=== PATIENT | female | born 1950 | race Caucasian/White ===

== ENCOUNTER → 2021-03-21 | Outpatient (CLI) | payer MEDICARE, OTHER ==
[~2021-03-21] MED LIST: APAP W/CODEINE1 TA2 PO; ASA81BEC PO; CALCIUM500 MG PO; DESYREL150 MG PO; EVISTA60 MG PO; FISH OIL 1,0001 EAC9 PO; LEVO-T50 MCG PO; MULTIVITAMIN PO; PROZAC PO; RIZATRIPTAN10 MG PO; SIMVASTATIN PO; VITAMIN D3 PO; ZYRTEC10 M5 PO
== END ==
LOC: M.PC 08:47
PROVIDERS: ATTEND Physical Medicine & Rehabilitation
DX: M47.816 Spondylosis without myelopathy or radiculopathy, lumbar region (principal); M16.0 Bilateral primary osteoarthritis of hip; M47.898 Other spondylosis, sacral and sacrococcygeal region; K21.9 Gastro-esophageal reflux disease without esophagitis; E03.9 Hypothyroidism, unspecified; Z90.710 Acquired absence of both cervix and uterus

== ENCOUNTER → 2021-03-22 | Outpatient (CLI) | payer MEDICARE, OTHER | LOC: M.MRI 13:50 | PROVIDERS: ATTEND Physical Medicine & Rehabilitation | DX: S32.028A Other fracture of second lumbar vertebra, initial encounter for closed fracture (principal); M47.816 Spondylosis without myelopathy or radiculopathy, lumbar region; M48.061 Spinal stenosis, lumbar region without neurogenic claudication; M51.27 Other intervertebral disc displacement, lumbosacral region; M48.07 Spinal stenosis, lumbosacral region; X58.XXXA Exposure to other specified factors, initial encounter; Y93.89 Activity, other specified; Y92.89 Other specified places as the place of occurrence of the external cause; Y99.8 Other external cause status ==

== ENCOUNTER → 2021-03-28 | Outpatient (CLI) | payer MEDICARE, OTHER | LOC: M.INT 10:29 | PROVIDERS: ATTEND Physical Medicine & Rehabilitation | DX: S32.028A Other fracture of second lumbar vertebra, initial encounter for closed fracture (principal); X58.XXXA Exposure to other specified factors, initial encounter; Y93.89 Activity, other specified; Y92.89 Other specified places as the place of occurrence of the external cause; Y99.8 Other external cause status ==

== ENCOUNTER → 2021-04-05 | Outpatient (CLI) | payer MEDICARE, OTHER ==
[~2021-04-05] VITALS: Ht 162.6 cm; Wt 51.3 kg
[2021-04-05 08:37] VITALS: BP 143/69
[2021-04-05 08:42] LABS: HEMATOCRIT 40.3 % (37.0-47.0); HEMOGLOBIN 13.5 gm/dL (12.0-15.0); MCH 31.8 pg (26.0-34.0); MCHC 33.5 g/dL (28.0-37.0); MCV 94.7 fL (80.0-100.0); MPV 7.2 fl. (7.2-11.1); RBC 4.26 mil/uL (4.20-5.00); RDW-CV 13.7 % (10.5-14.5)
[2021-04-05 08:53] LABS: APTT 27.8 Seconds (25.0-31.3); INR 1.3; PROTIME 13.2 Seconds (9.20-11.50)
[2021-04-05 10:33] VITALS: BP 106/56
[2021-04-05 11:00] VITALS: BP 107/47
[2021-04-05 11:30] VITALS: BP 109/57
[2021-04-05 12:00] VITALS: BP 126/63
== END | disposition home or self-care (01) ==
LOC: M.CL 05:57 → M.INT 07:34 → M.LAB 08:45 → M.INT 09:10
PROVIDERS: ATTEND Radiology Diagnostic Radiology
DX: M54.9 Dorsalgia, unspecified (principal); S32.020A Wedge compression fracture of second lumbar vertebra, initial encounter for closed fracture; M81.0 Age-related osteoporosis without current pathological fracture; E03.9 Hypothyroidism, unspecified; K21.9 Gastro-esophageal reflux disease without esophagitis; G43.909 Migraine, unspecified, not intractable, without status migrainosus; G62.9 Polyneuropathy, unspecified; Z98.890 Other specified postprocedural states; Z79.899 Other long term (current) drug therapy; Z90.710 Acquired absence of both cervix and uterus; Z88.8 Allergy status to other drugs, medicaments and biological substances; X58.XXXA Exposure to other specified factors, initial encounter; Y93.89 Activity, other specified; Y92.89 Other specified places as the place of occurrence of the external cause; Y99.8 Other external cause status

== ENCOUNTER 2021-04-14 13:32 | Emergency (ER) | payer MEDICARE, OTHER ==
[~2021-04-14] VITALS: Ht 162.6 cm; Wt 51.3 kg
[2021-04-14 18:46] LABS: ABSOLUTE BASOPHILS 0.1 thou/uL (0.0-0.2); ABSOLUTE EOSINOPHILS 0.1 thou/uL (0.0-0.7); ABSOLUTE LYMPHOCYTES 1.4 thou/uL (0.8-5.3); ABSOLUTE MONOCYTES 0.5 thou/uL (0.0-1.2); BASOPHILS 0.7 %; EOSINOPHILS 0.9 %; HEMOGLOBIN 14.5 gm/dL (12.0-15.0); MCV 95.5 fL (80.0-100.0); POLYS 78.2 %; WBC 9.8 thou/uL (4.0-11.0)
[2021-04-14 18:47] LABS: ABSOLUTE NEUTROPHILS 7.6 thou/uL (1.6-8.1); HEMATOCRIT 43.1 % (37.0-47.0); LYMPHOCYTES 14.6 %; MCH 32.1 pg (26.0-34.0); MCHC 33.6 g/dL (28.0-37.0); MONOCYTES 5.6 %; MPV 6.6 fl. (7.2-11.1); NUCLEATED RBCS 0 /100WBC; PLATELET COUNT* 241 thou/uL (150-400); RBC 4.51 mil/uL (4.20-5.00); RDW-CV 13.8 % (10.5-14.5)
[2021-04-14 18:56] LABS: CALCIUM 9.6 mg/dL (8.5-10.1); CREATININE 0.9 mg/dL (0.6-1.3); POTASSIUM 3.9 mmol/L (3.5-5.1)
[2021-04-14 19:07] LABS: ALBUMIN 3.4 g/dL (3.4-5.0); TOTAL BILIRUBIN 0.6 mg/dL (<0.1-1.0); TOTAL PROTEIN 7.1 g/dL (6.4-8.2)
[2021-04-14] MEDS ORDERED: NORCO5 PO (19:28)
[2021-04-14] MEDS ORDERED: HYDROCODON-ACE1 EAC7 PO (19:54)
[2021-04-14 20:00] VITALS: BP 132/61
--- NOTE | 2021-04-15 10:46 | EKG ---
[place] [address] ELECTROCARDIOGRAM REPORT Name: ROBY SZYMANSKI Room: [facility]#: [id number] Admission: 04/14/21 Attend Phys: Discharge: 04/14/21 Date of : 50 Date of Service: 04/14/21 1828 Report #: [id number] THIS REPORT FOR: //name// [facility] ED Test Date: 2021-04-14 Test Time: 18:28:05 Pat Name: ROBY PISANOUILL Department: Room: Gender: F Hr Consultant: : 1950 Requested By: Flor Masterson Order Number: [id number] MD: Altaf Toribio Measurements Intervals [place] Rate: 73 P: 42 [place]: 145 QRS: 53 QRSD: 96 T: 49 QT: 445 QTc: 491 Interpretive Statements Sinus rhythm Borderline prolonged QT interval Baseline wander in lead(s) II,III,aVF,V1 No previous ECG available for comparison Electronically Signed On 04-15-2021 10:45:53 [employer] by Altaf Toribio [email or web address] <ELECTRONICALLY SIGNED> By: Altaf Toribio MD, FACC 04/15/21 1045 1828 1828 Altaf Toribio MD, [facility] /EPI
== END 2021-04-14 20:01 | disposition home or self-care (01) ==
LOC: M.ERS 13:32
PROVIDERS: Physician Assistant
DX: S22.31XA Fracture of one rib, right side, initial encounter for closed fracture (principal); S22.071A Stable burst fracture of T9-T10 vertebra, initial encounter for closed fracture; E03.9 Hypothyroidism, unspecified; K21.9 Gastro-esophageal reflux disease without esophagitis; G43.909 Migraine, unspecified, not intractable, without status migrainosus; Z90.710 Acquired absence of both cervix and uterus; Z79.899 Other long term (current) drug therapy; Z88.8 Allergy status to other drugs, medicaments and biological substances; W19.XXXA Unspecified fall, initial encounter; Y93.89 Activity, other specified; Y92.89 Other specified places as the place of occurrence of the external cause; Y99.8 Other external cause status

== ENCOUNTER 2021-04-17 12:57 | Emergency (ER) | payer MEDICARE, OTHER ==
[~2021-04-17] VITALS: Ht 162.6 cm; Wt 51.3 kg
[~2021-04-17 12:57] MED LIST changes: -ZOFRAN ODT4 MG DISSOLVE
[2021-04-17] MEDS ORDERED: EVISTA60 MG PO (13:07)
[2021-04-17 14:21] LABS: ABSOLUTE LYMPHOCYTES 0.8 thou/uL (0.8-5.3); ABSOLUTE MONOCYTES 0.3 thou/uL (0.0-1.2); ABSOLUTE NEUTROPHILS 5.1 thou/uL (1.6-8.1); BASOPHILS 0.6 %; EOSINOPHILS 0.5 %; HEMATOCRIT 41.7 % (37.0-47.0); LYMPHOCYTES 12.5 %; MCHC 33.7 g/dL (28.0-37.0); MONOCYTES 4.3 %; MPV 6.6 fl. (7.2-11.1); NUCLEATED RBCS 0 /100WBC; PLATELET COUNT* 212 thou/uL (150-400); POLYS 82.1 %; RBC 4.39 mil/uL (4.20-5.00); RDW-CV 13.6 % (10.5-14.5); WBC 6.3 thou/uL (4.0-11.0)
[2021-04-17 14:34] LABS: CALCIUM 9.7 mg/dL (8.5-10.1); POTASSIUM 3.8 mmol/L (3.5-5.1)
[2021-04-17 14:38] LABS: ALBUMIN 3.2 g/dL (3.4-5.0); TOTAL BILIRUBIN 0.8 mg/dL (<0.1-1.0); TOTAL PROTEIN 6.8 g/dL (6.4-8.2)
[2021-04-17] MEDS ORDERED: ZOFRAN ODT4 MG DISSOLVE (15:23)
[2021-04-17 15:25] VITALS: BP 112/60
== END 2021-04-17 15:31 | disposition home or self-care (01) ==
LOC: M.ERS 12:57
PROVIDERS: Family Medicine
DX: R11.2 Nausea with vomiting, unspecified (principal); E03.9 Hypothyroidism, unspecified; G62.9 Polyneuropathy, unspecified; K21.9 Gastro-esophageal reflux disease without esophagitis; G43.909 Migraine, unspecified, not intractable, without status migrainosus; Z88.8 Allergy status to other drugs, medicaments and biological substances; Z88.3 Allergy status to other anti-infective agents; Z79.899 Other long term (current) drug therapy; Z79.82 Long term (current) use of aspirin; Z90.710 Acquired absence of both cervix and uterus

== ENCOUNTER → 2021-04-17 | Outpatient (CLI) | payer MEDICARE, OTHER ==
[~2021-04-17] VITALS: Ht 162.6 cm; Wt 51.3 kg
[~2021-04-17] MED LIST changes: +HYDROCODON-ACE1 EAC7 PO; +NORCO5 PO; +ZOFRAN ODT4 MG DISSOLVE
[2021-04-17 11:13] VITALS: BP 121/58
== END ==
LOC: M.INT 10:00
PROVIDERS: ATTEND Radiology Diagnostic Radiology
DX: S22.079A Unspecified fracture of T9-T10 vertebra, initial encounter for closed fracture (principal); X58.XXXA Exposure to other specified factors, initial encounter; Y93.89 Activity, other specified; Y92.89 Other specified places as the place of occurrence of the external cause; Y99.8 Other external cause status

== ENCOUNTER → 2021-04-20 | Outpatient (CLI) | payer MEDICARE, OTHER ==
[~2021-04-20] MED LIST changes: +ZOFRAN ODT4 MG DISSOLVE
== END ==
LOC: M.MRI 04-18 09:06
PROVIDERS: ATTEND Radiology Diagnostic Radiology
DX: M47.816 Spondylosis without myelopathy or radiculopathy, lumbar region (principal); M51.26 Other intervertebral disc displacement, lumbar region; N28.1 Cyst of kidney, acquired

== ENCOUNTER → 2021-05-10 | Outpatient (CLI) | payer MEDICARE, OTHER | LOC: M.RAD 11:19 | PROVIDERS: ATTEND Internal Medicine | DX: J98.4 Other disorders of lung (principal); J84.10 Pulmonary fibrosis, unspecified ==

== ENCOUNTER → 2021-05-17 | Outpatient (CLI) | payer MEDICARE, OTHER | LOC: M.RAD 05-14 15:30 | PROVIDERS: ATTEND Internal Medicine | DX: Z12.31 Encounter for screening mammogram for malignant neoplasm of breast (principal); M85.88 Other specified disorders of bone density and structure, other site; M81.0 Age-related osteoporosis without current pathological fracture; Z78.0 Asymptomatic menopausal state ==